=== PATIENT | male | born 1970 | race Caucasian/White ===

== ENCOUNTER 2017-10-06 02:33 | Emergency (ER) | payer SELFPAY ==
--- NOTE | 2017-10-06 02:40 | ED Physician Documentation ---
History of Present Illness - Stated complaint Stated Complaint: FIT FOR CONFINEMENT - History obtained from History obtained from: Patient, Police - History of Present Illness Timing: Today - Additonal information Additional information: Patient is a 47 year old male brought in by police for fit for confinement. patient went out for a walk and allegedly was hiding from police and walked through some black [place] bushes. They wanted to make sure he didn't have any thorns on hi so they brought him n for evaluation. Patient states he is up to date on his tetanus and was able to ambulate without any difficulty. Review of Systems Constitutional: reports: Reviewed and negative Eyes: reports: Reviewed and negative Ears: reports: Reviewed and negative Nose: reports: Reviewed and negative Throat: reports: Reviewed and negative Cardiac: reports: Reviewed and negative Respiratory: reports: Reviewed and negative GI: reports: Reviewed and negative : reports: Reviewed and negative Skin: reports: Abrasion (s) Musculoskeletal: reports: Extremity pain Neurologic: reports: Reviewed and negative Psychiatric: reports: Reviewed and negative Endocrine: reports: Reviewed and negative PD PAST MEDICAL HISTORY - Present Medications Home Medications: Ambulatory Orders Medication Instructions Recorded Confirmed No Known Home Medications [No 10/06/17 10/06/17 Known Home Medications] - Allergies Allergies/Adverse Reactions: Allergies Allergy/AdvReac Type Severity Reaction Status Date / Time No Known Drug Allergies Allergy Verified 10/06/17 02:36 PD ED PE NORMAL - Vitals Vital signs reviewed: Yes - General General: Alert and oriented X 3, No acute distress, Well developed/nourished - HEENT HEENT: Atraumatic, PERRL - Cardiac Cardiac: RRR - Respiratory Respiratory: No respiratory distress - Abdomen Abdomen: Soft - Neuro Neuro: Alert and oriented X 3, No motor deficit, Normal speech Eye Opening: Spontaneous Motor: Obeys Commands Verbal: Oriented GCS Score: 15 - Psych Psych: Normal mood PD ED PE EXPANDED - Extremities Extremities: Right foot (superficial abrasion of right foot) Results - Vitals Vitals: Vital Signs - 24 hr 10/06/17 02:34 Temperature 36.9 C Heart Rate 86 Respiratory 18 Rate Blood Pressure 141/97 H O2 Saturation 97 Oxygen O2 Source Room air PD MEDICAL DECISION MAKING - ED course Complexity details: reviewed old records, reviewed results, re-evaluated patient , considered differential, d/w patient ED course: Patient was seen and examined at bedside. patient was well appearing. patient' s wounds were cleaned and there was nothing to repair. they were all superficial abrasions. Patient was awake, alert oriented cooperative and was stable for discharge with outpatient follow up. Departure - Departure Disposition: 01 Home, Self Care Clinical Impression: Abrasion foot/toe Condition: Good Instructions: ED Abrasion Follow-Up: primary,care provider [Other] - As Needed Comments: please keep your wound clean and dry and take motrin or tylenol as needed for pain. You should monitor for signs of infection and follow up with your doctor for any of those signs.
[2017-10-06 02:43] VITALS: BP 141/97
== END 2017-10-06 02:41 | disposition home or self-care (01) ==
LOC: ED 02:33
DX: Z02.89 Encounter for other administrative examinations (principal); S90.811A Abrasion, right foot, initial encounter; W22.8XXA Striking against or struck by other objects, initial encounter
CPT/HCPCS: 99282; 99283